=== PATIENT | female | born 2000 | race African-American/Black ===

== ENCOUNTER 2022-01-02 12:23 | Emergency (ER) | payer OTHER ==
[2022-01-02 14:03] LABS: INFLUENZA A NAA NEGATIVE (NEGATIVE)
[2022-01-02 14:19] LABS: CORONAVIRUS 2019 SARS-COV-2 POSITIVE (NEGATIVE)
== END 2022-01-02 16:15 | disposition home or self-care (01) ==
LOC: FER 12:23
PROVIDERS: Nurse Practitioner Family
DX: O98.511 Other viral diseases complicating pregnancy, first trimester (principal); U07.1 COVID-19; O99.511 Diseases of the respiratory system complicating pregnancy, first trimester; J45.909 Unspecified asthma, uncomplicated; Z88.5 Allergy status to narcotic agent; Z3A.12 12 weeks gestation of pregnancy; Z28.310 Unvaccinated for COVID-19
CPT/HCPCS: 99283; U0002